=== PATIENT | female | born 1965 | race Two or more races ===

== ENCOUNTER 2024-03-25 10:04 | Emergency (ER) | payer OTHER ==
[~2024-03-25] VITALS: Ht 154.9 cm; Wt 45.4 kg
[2024-03-25] MEDS ORDERED: KETOROLAC TROMETHAMINE 30 MG VIAL IM STA (11:56)
== END 2024-03-25 12:45 | disposition home or self-care (01) ==
LOC: ER 10:06
DX: S42.202A Unspecified fracture of upper end of left humerus, initial encounter for closed fracture (principal); W18.39XA Other fall on same level, initial encounter; Y93.89 Activity, other specified; Y92.89 Other specified places as the place of occurrence of the external cause; Y99.9 Unspecified external cause status

== ENCOUNTER 2024-04-07 08:24 | Outpatient (CLI) | payer OTHER | END 2024-04-07 08:28 | disposition home or self-care (01) | LOC: RAD 08:24 | PROVIDERS: ATTEND Orthopaedic Surgery | DX: M25.512 Pain in left shoulder (principal); S42.225A 2-part nondisplaced fracture of surgical neck of left humerus, initial encounter for closed fracture ==